=== PATIENT | male | born 1975 | race American Indian/Alaskan Native ===

== ENCOUNTER 2018-10-15 21:37 | Emergency (ER) | payer SELFPAY ==
--- NOTE | 2018-10-15 21:52 | Event Note ---
ED Screening Note Date of service: 10/15/18 Time: 21:50 ED Screening Note: This is a 43 y.o. M. that presents to the ER with right flank pain radiating to right groin x 3 hours. This initial assessment/diagnostic orders/clinical plan/treatment(s) is/are subject to change based on patients health status, clinical progression and re- assessment by fellow clinical providers in the ED. Further treatment and workup at subsequent clinical providers discretion. Patient/guardian urged not to elope from the ED as their condition may be serious if not clinically assessed and managed. Initial orders include: Labs and CT of abdomen and pelvis.
[2018-10-15 22:14] LABS: Bilirubin,Urine NEG (Negative); Blood,Urine LG (Negative); Color,Urine Yellow (Yellow); Mucus,Urine 1+ /HPF
[2018-10-15 22:19] LABS: Basophils % (Auto) 0.3 % (0.0-1.8); Eosinophils # (Auto) 0.2 K/mm3 (0.0-0.4); Eosinophils % (Auto) 2.4 % (0.0-4.3); Hematocrit 47.8 % (35.5-45.6); Lymphocytes # (Auto) 0.8 K/mm3 (1.2-5.4); Lymphocytes % (Auto) 8.4 % (13.4-35.0); Mean Corpuscular HGB Conc 33 % (32-34); Mean Corpuscular Volume 96 fl (84-94); Monocytes # (Auto) 0.6 K/mm3 (0.0-0.8); Monocytes % (Auto) 6.4 % (0.0-7.3); Platelet Count 242 K/mm3 (140-440); Red Blood Count 4.97 M/mm3 (3.65-5.03); Red Cell Distribution Width 13.9 % (13.2-15.2)
[2018-10-15 22:33] LABS: Alanine Aminotransferase 13 units/L (7-56); Albumin 4.5 g/dL (3.9-5); BUN/Creatinine Ratio 8; Blood Urea Nitrogen 11 mg/dL (9-20); Calcium 9.9 mg/dL (8.4-10.2); Hemolysis Index 5
[2018-10-15] MEDS ORDERED: TORADOL IV ONE (22:51)
[2018-10-15] MEDS ORDERED: NACL 0.9% 1000 ML 1,000 ML IV ONE (22:51)
[2018-10-15] MEDS ORDERED: ZOFRAN IV ONE (22:51)
--- NOTE | 2018-10-15 22:56 | Emergency Department Report ---
ED Back Pain/Injury HPI - General Chief Complaint: Back Pain/Injury Stated Complaint: BACK PAIN Time Seen by Provider: 10/15/18 21:50 Source: patient Limitations: No Limitations - History of Present Illness Initial Comments: Patient is a 43-year-old male presents to the emergency room with complaints of right-sided back pain and right flank pain that began today. He has associated nausea and vomiting. He states he has not had a bowel movement in 2 days. He denies any fever, hematuria, diarrhea. He states he has never had this before and denies any history of nephrolithiasis. He denies any past medical history. He states his only allergy is to fish and coconuts. - Related Data Previous Rx's Medication Instructions Recorded Last Taken Type Tamsulosin [Flomax] 0.4 mg PO QDAY #7 cap 10/16/18 Unknown Rx traMADol [Ultram 50 MG tab] 50 mg PO Q8HR PRN #7 tablet 10/16/18 Unknown Rx Allergies Allergy/AdvReac Type Severity Reaction Status Date / Time No Known Allergies Allergy Unverified 10/15/18 21:53 ED Review of Systems ROS: Stated complaint: BACK PAIN Other details as noted in HPI Comment: All other systems reviewed and negative ED Past Medical Hx - Past Medical History Previous Medical History?: No - Surgical History Past Surgical History?: Yes Additional Surgical History: Right leg - Social History Smoking Status: Current Every Day Smoker Substance Use Type: None - Medications Home Medications: Home Medications Medication Instructions Recorded Confirmed Last Taken Type Tamsulosin [Flomax] 0.4 mg PO QDAY #7 cap 10/16/18 Unknown Rx traMADol [Ultram 50 MG tab] 50 mg PO Q8HR PRN #7 tablet 10/16/18 Unknown Rx ED Physical Exam - General Limitations: No Limitations General appearance: alert, in no apparent distress - Head Head exam: Present: atraumatic, normocephalic - Eye Eye exam: Present: normal appearance - ENT ENT exam: Present: mucous membranes moist - Respiratory Respiratory exam: Present: normal lung sounds bilaterally. Absent: respiratory distress, wheezes, rales, rhonchi, stridor, chest wall tenderness, accessory muscle use, decreased breath sounds, prolonged expiratory - Cardiovascular Cardiovascular Exam: Present: regular rate, normal rhythm, normal heart sounds. Absent: systolic murmur, diastolic murmur, rubs, gallop - GI/Abdominal GI/Abdominal exam: Present: soft, normal bowel sounds. Absent: distended, tenderness, guarding, rebound, rigid - Back Exam Back exam: Present: CVA tenderness (R) - Neurological Exam Neurological exam: Present: alert, oriented X3 - Psychiatric Psychiatric exam: Present: normal affect, normal mood - Skin Skin exam: Present: warm, dry, intact ED Course Vital Signs 10/15/18 10/16/18 21:48 01:22 Temperature 98 F 98.1 F Pulse Rate 89 73 Respiratory 18 16 Rate Blood Pressure 122/84 Blood Pressure 130/83 [Left] O2 Sat by Pulse 99 98 Oximetry ED Medical Decision Making - Lab Data Result diagrams: 10/15/18 22:05 10/15/18 22:05 Lab Results 10/15/18 10/15/18 10/15/18 Range/Units 22:05 22:05 22:05 WBC 10.1 (4.5-11.0) K/mm3 RBC 4.97 (3.65-5.03) M/mm3 Hgb 16.0 H (11.8-15.2) gm/dl Hct 47.8 H (35.5-45.6) % MCV 96 H (84-94) fl MCH 32 (28-32) pg MCHC 33 (32-34) % RDW 13.9 (13.2-15.2) % Plt Count 242 (140-440) K/mm3 Lymph % (Auto) 8.4 L (13.4-35.0) % [place] % (Auto) 6.4 (0.0-7.3) % Eos % (Auto) 2.4 (0.0-4.3) % Baso % (Auto) 0.3 (0.0-1.8) % Lymph # 0.8 L (1.2-5.4) K/mm3 [place] # 0.6 (0.0-0.8) K/mm3 Eos # 0.2 (0.0-0.4) K/mm3 Baso # 0.0 (0.0-0.1) K/mm3 Seg Neutrophils % 82.5 H (40.0-70.0) % Seg Neutrophils # 8.3 H (1.8-7.7) K/mm3 Sodium 141 (137-145) mmol/L Potassium 3.9 (3.6-5.0) mmol/L Chloride 104.8 (98-107) mmol/L Carbon Dioxide 25 (22-30) mmol/L Anion Gap 15 mmol/L BUN 11 (9-20) mg/dL Creatinine 1.3 (0.8-1.5) mg/dL Estimated GFR > 60 ml/min BUN/Creatinine Ratio 8 % Glucose 108 H (75-100) mg/dL Calcium 9.9 (8.4-10.2) mg/dL Total Bilirubin 0.30 (0.1-1.2) mg/dL AST 17 (5-40) units/L ALT 13 (7-56) units/L Alkaline Phosphatase 143 H (35-129) units/L Total Protein 8.2 (6.3-8.2) g/dL Albumin 4.5 (3.9-5) g/dL Albumin/Globulin Ratio 1.2 % Lipase 21 (13-60) units/L Urine Color (Yellow) Urine Turbidity (Clear) Urine pH (5.0-7.0) Ur Specific [place] (1.003-1.030) Urine Protein (Negative) mg/dL Urine Glucose (UA) (Negative) mg/dL Urine Ketones (Negative) mg/dL Urine Blood (Negative) Urine Nitrite (Negative) Urine Bilirubin (Negative) Urine Urobilinogen (<2.0) mg/dL Ur Leukocyte Esterase (Negative) Urine WBC (Auto) (0.0-6.0) /HPF Urine RBC (Auto) (0.0-6.0) /HPF U Epithel Cells (Auto) (0-13.0) /HPF Urine Mucus /HPF 10/15/18 Range/Units Unknown WBC (4.5-11.0) K/mm3 RBC (3.65-5.03) M/mm3 Hgb (11.8-15.2) gm/dl Hct (35.5-45.6) % MCV (84-94) fl MCH (28-32) pg MCHC (32-34) % RDW (13.2-15.2) % Plt Count (140-440) K/mm3 Lymph % (Auto) (13.4-35.0) % [place] % (Auto) (0.0-7.3) % Eos % (Auto) (0.0-4.3) % Baso % (Auto) (0.0-1.8) % Lymph # (1.2-5.4) K/mm3 [place] # (0.0-0.8) K/mm3 Eos # (0.0-0.4) K/mm3 Baso # (0.0-0.1) K/mm3 Seg Neutrophils % (40.0-70.0) % Seg Neutrophils # (1.8-7.7) K/mm3 Sodium (137-145) mmol/L Potassium (3.6-5.0) mmol/L Chloride (98-107) mmol/L Carbon Dioxide (22-30) mmol/L Anion Gap mmol/L BUN (9-20) mg/dL Creatinine (0.8-1.5) mg/dL Estimated GFR ml/min BUN/Creatinine Ratio % Glucose (75-100) mg/dL Calcium (8.4-10.2) mg/dL Total Bilirubin (0.1-1.2) mg/dL AST (5-40) units/L ALT (7-56) units/L Alkaline Phosphatase (35-129) units/L Total Protein (6.3-8.2) g/dL Albumin (3.9-5) g/dL Albumin/Globulin Ratio % Lipase (13-60) units/L Urine Color Yellow (Yellow) Urine Turbidity Slightly-cloudy (Clear) Urine pH 5.0 (5.0-7.0) Ur Specific [place] 1.029 (1.003-1.030) Urine Protein 30 mg/dl (Negative) mg/dL Urine Glucose (UA) Neg (Negative) mg/dL Urine Ketones Neg (Negative) mg/dL Urine Blood Lg (Negative) Urine Nitrite Neg (Negative) Urine Bilirubin Neg (Negative) Urine Urobilinogen 2.0 (<2.0) mg/dL Ur Leukocyte Esterase Neg (Negative) Urine WBC (Auto) 3.0 (0.0-6.0) /HPF Urine RBC (Auto) 114.0 (0.0-6.0) /HPF U Epithel Cells (Auto) 1.0 (0-13.0) /HPF Urine Mucus 1+ /HPF - Radiology Data Radiology results: report reviewed CT ABDOMEN AND PELVIS WITHOUT CONTRAST HISTORY: right flank pain. Acute right flank pain for the past 4 hours COMPARISON: None. TECHNIQUE: CT images of the abdomen and pelvis were obtained without administration of intravenous contrast. All CT scans at this location are performed using CT dose reduction for ALARA by means of automated exposure control. FINDINGS: Lungs/bones: There is a 5 mm nodule in the right lung base on image #6. The lung bases are otherwise clear. No acute osseous abnormality or significant DJD. Abdomen/pelvis: There is a 4 mm stone within the urinary bladder and there is mild residual right- sided hydronephrosis likely reflecting recent stone passage. The kidneys otherwise appear unremarkable. The liver is enlarged with no focal mass. The gallbladder, spleen, pancreas, adrenals, and proximal GI tract appear unremarkable. The prostate is enlarged and indents the bladder base. The bladder is otherwise contracted but unremarkable. No pelvic free fluid and no acute colonic abnormality identified. The terminal ileum and appendix appear normal. IMPRESSION: 1. Recent stone passage on the right with 4 mm stone within the urinary bladder and mild residual right-sided hydronephrosis. Signer Name: Luigi Thompson MD Signed: 10/16/2018 12:33 AM Workstation Name: [id number] Transcribed By: YANETH Dictated By: Luigi Thompson MD Electronically Authenticated By: Luigi Thompson MD Signed Date/Time: 10/16/18 0033 - Medical Decision Making Patient is a 43-year-old male presents to the emergency room with complaints of right-sided back pain and right flank pain that began today. He has associated nausea and vomiting. He states he has not had a bowel movement in 2 days. He denies any fever, hematuria, diarrhea. He states he has never had this before and denies any history of nephrolithiasis. He denies any past medical history. He states his only allergy is to fish and coconuts. vitals are normal. on exam: right CVAT. labs WNL. UA has blood present, without signs of UTI. CT abd pelvis shows: Recent stone passage on the right with 4 mm stone within the urinary bladder and mild residual right-sided hydronephrosis. pt given 1L of NS, toradol, and zofran while in the ED. pt had no further episodes of emesis and was tolerating PO intake. pt states that his pain improved. pt given prescription for flomax and tramadol. advised pt to please take medication as prescribed. do not drive or operate heavy machinery while taking pain medication. drink plenty of water over the next several days. follow up with a primary care doctor and urologist in the next 2-3 days. return to the emergency room for any new or worsening symptoms. - Differential Diagnosis nephrolithisis, UTI, bowel obstruction Critical care attestation.: If time is entered above; I have spent that time in minutes in the direct care of this critically ill patient, excluding procedure time. ED Disposition Clinical Impression: Nephrolithiasis, Right flank pain Disposition: - TO HOME OR SELFCARE Is pt being admited?: No Does the pt Need Aspirin: No Condition: Stable Instructions: Kidney Stones (ED) Additional Instructions: please take medication as prescribed. do not drive or operate heavy machinery while taking pain medication. drink plenty of water over the next several days. follow up with a primary care doctor and urologist in the next 2-3 days. return to the emergency room for any new or worsening symptoms. Prescriptions: Tamsulosin [Flomax] 0.4 mg PO QDAY #7 cap traMADol [Ultram 50 MG tab] 50 mg PO Q8HR PRN #7 tablet PRN Reason: Pain , Severe (7-10) Referrals: [facility] MD FERNANDA [Primary Care Provider] - 2-3 Days INDRA SEPULVEDA MD [Staff Physician] - 2-3 Days Time of Disposition: 00:47 Print Language: BULGARIAN
--- NOTE | 2018-10-16 00:38 | Cat Scan Report ---
CT ABDOMEN AND PELVIS WITHOUT CONTRAST HISTORY: right flank pain. Acute right flank pain for the past 4 hours COMPARISON: None. TECHNIQUE: CT images of the abdomen and pelvis were obtained without administration of intravenous co ntrast. All CT scans at this location are performed using CT dose reduction for ALARA by means of au tomated exposure control. FINDINGS: Lungs/bones: There is a 5 mm nodule in the right lung base on image #6. The lung bases are otherwise clear. No acute osseous abnormality or significant DJD. Abdomen/pelvis: There is a 4 mm stone within the urinary bladder and there is mild residual right-si ded hydronephrosis likely reflecting recent stone passage. The kidneys otherwise appear unremarkable. The liver is enlarged with no focal mass. The gallbladder, spleen, pancreas, adrenals, and proximal G I tract appear unremarkable. The prostate is enlarged and indents the bladder base. The bladder is otherwise contracted but unrema rkable. No pelvic free fluid and no acute colonic abnormality identified. The terminal ileum and appe ndix appear normal. IMPRESSION: 1. Recent stone passage on the right with 4 mm stone within the urinary bladder and mild residual rig ht-sided hydronephrosis. Signer Name: Luigi Thompson MD Signed: 10/16/2018 12:33 AM Workstation Name: [id number]
[2018-10-16 01:23] VITALS: BP 130/83
== END 2018-10-16 01:21 | disposition home or self-care (01) ==
LOC: ED 21:37
DX: N20.0 Calculus of kidney (principal); R11.2 Nausea with vomiting, unspecified; F17.200 Nicotine dependence, unspecified, uncomplicated
CPT/HCPCS: 36415; 74176; 80053; 81001; 83690; 85025; 96361; 96374; 96375; 99284; J1885; J2405; J7030